=== PATIENT | male | born 2000 | race Caucasian/White ===

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

== ENCOUNTER 2022-01-06 02:53 | Emergency (ER) | payer BC ==
--- OUTSIDE RECORDS SUMMARY | 2022-01-06 02:56 | XMS REPORT | Continuity of Care Document ---
:2000 Author Organization [facility] t Address [address] [place] [address] Dr. Romero [address] [place] [id number] Care Team Providers Name Role Phone Unavailable Unavailable Unavailable Problems This patient has no known problems. Allergies, Adverse Reactions, Alerts This patient has no known allergies or adverse reactions. Medications This patient has no known medications. Procedures This patient has no known procedures. Results This patient has no known results.
[2022-01-06] MEDS ORDERED: MORPHINE 4 MG/ML SYR ONE (03:25)
[2022-01-06] MEDS ORDERED: ONDANSETRON 4 MG/2 ML VIAL ONE (03:25)
[2022-01-06] MEDS ORDERED: NA CHLORIDE 0.9% 1,000 ML ONE (03:25)
[2022-01-06 03:35] LABS: Absolute Lymphocytes (CBC) 2.1 K/uL (0.7-4.9); Hematocrit 45.5 % (39.6-49.0); Lymphocytes % 26.4 % (15.3-44.8); MCV 92.4 fL (80-100); RBC Red Blood Cell Count 4.92 M/uL (4.33-5.43)
[2022-01-06 03:47] LABS: Albumin 3.8 g/dL (3.4-5.0); Bilirubin Total 0.2 mg/dL (0.2-1.0); Potassium 3.9 mmol/L (3.5-5.1); Protein, Total 7.8 g/dL (6.4-8.2)
[2022-01-06 03:59] LABS: Urine Blood Negative (Negative); Urine Glucose Negative (Negative); Urine Protein Negative (Negative); Urine Specific Gravity 1.015 (1.005-1.030)
[2022-01-06 04:17] LABS: Urine RBC <5 /HPF (None Seen)
--- NOTE | 2022-01-06 04:51 | ER ---
Nurse's Notes [facility] Name: Leroy Lora Age: 21 yrs Sex: Male : 2000 Arrival Date: 01/06/2022 Time: 02:57 Bed 2 Private MD: Diagnosis: Right upper quadrant abdominal pain;Marijuana use Presentation: 01/06 03:04 Chief complaint: Patient states: "I have right upper abdominal pain. It's been going on as6 for 4 days and it just keeps getting worse" pt reports 1 episode of vomiting yesterday, pain worsens with movement. Coronavirus screen: At this time, the client does not indicate any symptoms associated with coronavirus-19. Ebola Screen: No symptoms or risks identified at this time. Initial Sepsis Screen: Does the patient meet any 2 criteria? No. Patient's initial sepsis screen is negative. Does the patient have a suspected source of infection? No. Patient's initial sepsis screen is negative. Risk Assessment: Do you want to hurt yourself or someone else? Patient reports no desire to harm self or others. Onset of symptoms was December 31, 2021. 03:04 Method Of Arrival: Ambulatory as6 03:04 Acuity: CATHY 3 as6 Historical: - Allergies: 03:06 No Known Drug Allergies; as6 - PMHx: 03:06 Anxiety; Bipolar disorder; as6 - PSHx: 03:06 None; as6 - Immunization history:: Client reports having NOT received the Covid vaccine. - Social history:: Smoking status: Reported history of juuling and/or vaping. Screenin:11 Abuse screen: Denies threats or abuse. Denies injuries from another. Nutritional ll3 screening: No deficits noted. Tuberculosis screening: No symptoms or risk factors identified. Fall Risk No fall in past 12 months (0 pts). No secondary diagnosis (0 pts). IV access (20 points). Ambulatory Aid- None/Bed Rest/Nurse Assist (0 pts). Gait- Normal/Bed Rest/Wheelchair (0 pts) Mental Status- Oriented to own ability (0 pts). Total Mondragon Fall Scale indicates No Risk (0-24 pts). Assessment: 03:11 General: Appears uncomfortable, Behavior is calm, cooperative. Pain: Complains of pain ll3 in right upper quadrant Pain currently is 6 out of 10 on a pain scale. Pain began 2-3 days ago. Is continuous, Aggravated by Coughing. Respiratory: Reports cough that is persistent States has a chronic cough from smoking. GI: Bowel sounds present X 4 quads. Abd is soft X 4 quads Abdomen is tender to palpation in right upper quadrant Reports nausea. Derm: Skin is pink, warm \\T\\ dry. 04:39 Reassessment: No changes from previously documented assessment. Patient and/or family kd3 updated on plan of care and expected duration. Pain level reassessed. Patient is alert, oriented x 3, equal unlabored respirations, skin warm/dry/pink. Neuro: Level of Consciousness is awake, alert, Oriented to person, place, time, situation. Respiratory: Airway is patent Trachea midline Respiratory effort is even, unlabored, Respiratory pattern is regular, symmetrical. GI: Abdomen is flat, non-distended. 05:06 Reassessment: Patient and/or family updated on plan of care and expected duration. Pain ha1 level reassessed. Patient is alert, oriented x 3, equal unlabored respirations, skin warm/dry/pink. Vital Signs: 03:04 BP 133 / 72; Pulse 86; Resp 16 S; Temp 98.3(O); Pulse Ox 98% on R/A; Weight 77.11 kg as6 (R); Height 6 ft. 0 in. (182.88 cm) (R); Pain 5/10; 04:39 BP 122 / 69; Pulse 77; Resp 16; Pulse Ox 99% on R/A; kd3 05:05 BP 108 / 58; Pulse 80; Resp 17; Pulse Ox 99% on R/A; ha1 03:04 Body Mass Index 23.06 (77.11 kg, 182.88 cm) as6 ED Course: 02:57 Patient arrived in ED. ja2 03:00 Marivel Blank MD is Attending Physician. sd2 03:06 Triage completed. as6 03:06 Arm band placed on. as6 03:11 Patient has correct armband on for positive identification. Bed in low position. Call ll3 light in reach. Side rails up X 1. Adult w/ patient. 03:21 Dinorah Laura, RN is Primary Nurse. kd3 03:21 Lipase Sent. kd3 03:21 CMP Sent. kd3 03:21 CBC with Diff Sent. kd3 03:21 Inserted saline lock: 20 gauge in right antecubital area, using aseptic technique. kd3 Blood collected. 03:35 US Abdomen Limited In Process Unspecified. EDMS 04:05 Urine Microscopic Only Sent. kd3 04:14 CT Abd/Pelvis - IV Contrast Only In Process Unspecified. EDMS 04:33 Urine Drug Screen Sent. kd3 05:06 No provider procedures requiring assistance completed. ha1 05:07 IV discontinued, intact, bleeding controlled, No redness/swelling at site. Pressure ha1 dressing applied. Administered Medications: 03:21 Drug: morphine 4 mg Route: IVP; Infused Over: 4 mins; Site: right antecubital; kd3 03:56 Follow up: Response: No adverse reaction; Pain is decreased; RASS: Alert and Calm (0) ha1 03:21 Drug: Zofran (Ondansetron) 4 mg Route: IVP; Site: right antecubital; kd3 05:08 Follow up: Response: No adverse reaction; Nausea is decreased ha1 03:21 Drug: NS 0.9% 1000 ml Route: IV; Rate: 1 bolus; Site: right antecubital; kd3 05:09 Follow up: Response: No adverse reaction; IV Status: Completed infusion; IV Intake: ha1 1000ml Medication: 04:39 VIS not applicable for this client. kd3 Intake: 05:09 IV: 1000ml; Total: 1000ml. ha1 Outcome: 04:50 Discharge ordered by . sd2 05:06 Discharged to home ambulatory, with family. ha1 05:06 Condition: stable 05:06 Discharge instructions given to patient, family, Instructed on discharge instructions, follow up and referral plans. medication usage, Demonstrated understanding of instructions, follow-up care, Prescriptions given X 2. 05:07 Patient left the ED. ha1 Signatures: Dispatcher [employer] EDMS Walker RuthApolinar Queen RN RN as6 Elvia Horne RN RN ll3 Dinorah Laura RN RN kd3 Marivel Blank MD MD sd2 Madalyn Arreola RN RN ha1 Corrections: (The following items were deleted from the chart) 05:09 05:09 IV Status: Completed infusion; IV Intake: 1000ml ha1 ha1
--- NOTE | 2022-01-06 04:51 | EDPHYS ---
Physician Documentation [facility] Name: Leroy Lora Age: 21 yrs Sex: Male : 2000 Arrival Date: 01/06/2022 Time: 02:57 Bed 2 Private MD: ED Physician Marivel Blank HPI: 01/06 03:11 This 21 yrs old Male presents to ER via Ambulatory with complaints of Fever, Abdominal sd2 Pain. 03:11 21 yo M presents with CC of RUQ abdominal pain that started a few days ago per patient. sd2 He reports pain has been localized to the same area with one episode of vomiting that occurred the night before last. Denies any associated fevers, diarrhea or urinary symptoms. No prior abdominal issues or surgeries. Has been taking Advil and Aleve at home with minimal relief.. Historical: - Allergies: 03:06 No Known Drug Allergies; as6 - PMHx: 03:06 Anxiety; Bipolar disorder; as6 - PSHx: 03:06 None; as6 - Immunization history:: Client reports having NOT received the Covid vaccine. - Social history:: Smoking status: Reported history of juuling and/or vaping. ROS: 03:11 Constitutional: Negative for fever, chills, and weight loss, Eyes: Negative for injury, sd2 pain, redness, and discharge, Cardiovascular: Negative for chest pain, palpitations, and edema, Respiratory: Negative for shortness of breath, cough, wheezing. Abdomen/GI: Positive for abdominal pain, nausea, vomiting, Negative for diarrhea. : Negative for dysuria, frequency or hematuria. MS/Extremity: Negative for injury and deformity, Skin: Negative for injury, rash, and discoloration, Neuro: Negative for headache, numbness and tingling. Exam: 03:11 Constitutional: This is a well developed, well nourished patient who is awake, alert, sd2 and in no acute distress. Head/Face: Normocephalic, atraumatic. Eyes: EOMI, normal conjunctiva bilaterally Chest/axilla: Normal chest wall appearance and motion. Nontender with no deformity. Cardiovascular: Regular rate and rhythm with a normal S1 and S2. No gallops, murmurs, or rubs. 2+ distal pulses. Respiratory: Lungs have equal breath sounds bilaterally, clear to auscultation and percussion. No rales, rhonchi or wheezes noted. No increased work of breathing, no retractions or nasal flaring. Skin: Warm, dry with normal turgor. Normal color with no rashes, no lesions, and no evidence of cellulitis. MS/ Extremity: Pulses equal, no cyanosis. Neurovascular intact. Full, normal range of motion. Ambulatory without difficulty. Psych: Awake, alert, with orientation to person, place and time. Behavior, mood, and affect are within normal limits. 03:11 Abdomen/GI: Exam negative for distension, injury, masses, splenomegaly, Palpation: soft, moderate abdominal tenderness, in the right upper quadrant, voluntary guarding, is elicited in the right upper quadrant. Vital Signs: 03:04 BP 133 / 72; Pulse 86; Resp 16 S; Temp 98.3(O); Pulse Ox 98% on R/A; Weight 77.11 kg as6 (R); Height 6 ft. 0 in. (182.88 cm) (R); Pain 5/10; 04:39 BP 122 / 69; Pulse 77; Resp 16; Pulse Ox 99% on R/A; kd3 05:05 BP 108 / 58; Pulse 80; Resp 17; Pulse Ox 99% on R/A; ha1 03:04 Body Mass Index 23.06 (77.11 kg, 182.88 cm) as6 MDM: 03:00 Patient medically screened. sd2 03:13 Differential diagnosis: Gastritis, cholecystitis, pancreatitis, SBO, diverticulitis, sd2 kidney stone, appendicitis, UTI, dehydration, electrolyte abnormality among others. Data reviewed: vital signs, nurses notes. 04:48 Data reviewed: lab test result(s), radiologic studies. Counseling: I had a detailed sd2 discussion with the patient and/or guardian regarding: the historical points, exam findings, and any diagnostic results supporting the discharge/admit diagnosis, lab results, radiology results, the need for outpatient follow up, to return to the emergency department if symptoms worsen or persist or if there are any questions or concerns that arise at home. Medical screen evaluation completed. EMTALA emergency medical condition absent. ED course: Labs and imaging reviewed. Labs grossly WNCL. Urine without infection. UDS pending but patient does admit to regular marijuana use. CTAP and US with no acute abnormalities. pt advised of all results. Pain improved after treatment. Benign abdominal exam. pt resting comfortably. Pt counseled on cessation of THC use and need for follow up outpatient regarding symptoms. Pt verbalizes understanding of discharge plan and strict return precautions. . 01/06 03:10 Order name: CBC with Diff; Complete Time: 04:13 2 01/06 03:10 Order name: CMP; Complete Time: 04:13 01/06 03:10 Order name: Lipase; Complete Time: 04:13 01/06 03:47 Order name: Urine Microscopic Only; Complete Time: 04:28 01/06 04:00 Order name: Urine Dipstick-Ancillary; Complete Time: 04:13 EDMS 01/06 04:28 Order name: Urine Drug Screen 01/06 03:10 Order name: US Abdomen Limited 01/06 03:30 Order name: CT Abd/Pelvis - IV Contrast Only 01/06 03:47 Order name: Urine Dipstick-Ancillary (obtain specimen); Complete Time: 04:05 sd2 Administered Medications: 03:21 Drug: morphine 4 mg Route: IVP; Infused Over: 4 mins; Site: right antecubital; kd3 03:56 Follow up: Response: No adverse reaction; Pain is decreased; RASS: Alert and Calm (0) ha1 03:21 Drug: Zofran (Ondansetron) 4 mg Route: IVP; Site: right antecubital; kd3 05:08 Follow up: Response: No adverse reaction; Nausea is decreased ha1 03:21 Drug: NS 0.9% 1000 ml Route: IV; Rate: 1 bolus; Site: right antecubital; kd3 05:09 Follow up: Response: No adverse reaction; IV Status: Completed infusion; IV Intake: ha1 1000ml Disposition Summary: 01/06/22 04:50 Discharge Ordered Location: Home sd2 Problem: new sd2 Symptoms: have improved sd2 Condition: Stable sd2 Diagnosis - Right upper quadrant abdominal pain sd2 - Marijuana use sd2 Followup: sd2 - With: Private Physician - When: 2 - 3 days - Reason: Recheck today's complaints, Continuance of care, Re-evaluation by your physician Discharge Instructions: - Discharge Summary Sheet sd2 - Abdominal Pain, Adult sd2 Forms: - Medication Reconciliation Form sd2 - Thank You Letter sd2 - Antibiotic Education sd2 - Prescription Opioid Use sd2 Prescriptions: - Zofran 4 mg Oral Tablet - take 1 tablet by ORAL route every 6 hours As needed; 15 tablet; Refills: 0, sd2 Product Selection Permitted - dicyclomine 20 mg Oral Tablet - take 1 tablet by ORAL route every 6-8 hours As needed for abdominal cramping; sd2 15 tablet; Refills: 0, Product Selection Permitted Signatures: Dispatcher [employer] Apolinar Ricardo RN RN as6 Dinorah Laura RN RN kd3 Marivel Blank MD MD sd2 Madalyn Arreola RN ha1
[2022-01-06 05:09] LABS: Barbiturates NEGATIVE (NEGATIVE); Benzodiazepines NEGATIVE (NEGATIVE); Cocaine NEGATIVE (NEGATIVE); METHAMPHETAM NEGATIVE (NEGATIVE); Methadone NEGATIVE (NEGATIVE); Opiates NEGATIVE (NEGATIVE); Phencyclidine NEGATIVE (NEGATIVE); THC Cannibis POSITIVE (NEGATIVE)
--- NOTE | 2022-01-06 16:28 | RAD REPORT ---
EXAM DESCRIPTION: CT - Abdomen Pelvis W Contrast - 01/06/2022 4:08 am CLINICAL HISTORY: Right sided abdominal pain COMPARISON: US right upper abdomen 01/06/2022 at 3:28 AM. TECHNIQUE: Abdomen/pelvis axial images acquired with IV contrast. Coronal and sagittal reformats cre ated. Exam performed according to departmental dose-optimization program which includes automated exp osure control, adjustment of mA and/or kV according to patient size, and/or use of iterative reconstr uction technique. FINDINGS: No free air or significant free fluid. Liver, gallbladder, spleen, pancreas, adrenals, kidneys, and urinary bladder unremarkable. Nonopacified stomach, small bowel, appendix, and large bowel appear grossly unremarkable. Portions of large bowel difficult to accurately evaluate due to lack of distention. Abdominal aorta unremarkable. Bones unremarkable. IMPRESSION: Unremarkable CT Abdomen/Pelvis With Contrast Electronically signed by: Truman Mullins MD 01/06/2022 4:29 AM CDT Due to temporary technical issues with the PACS/Fluency reporting system, reports are being signed by the in house radiologists without review as a courtesy to insure prompt reporting. The interpreting radiologist is fully responsible for the content of the report.
--- NOTE | 2022-01-06 16:35 | RAD REPORT ---
EXAM DESCRIPTION: US - Abdomen Exam Limited - 01/06/2022 3:33 am CLINICAL HISTORY: The patient is 21 years old and is Male; ABD PAIN reportedly negative sonographic Foster sign on exam TECHNIQUE: Real-time ultrasound of the right upper quadrant with image documentation. COMPARISON: No relevant prior studies available. FINDINGS: LIVER: Unremarkable as visualized. No mass. No intrahepatic bile duct dilation. GALLBLADDER: No gallbladder wall thickening. No stones. No pericholecystic free fluid. COMMON BILE DUCT: Unremarkable as visualized. No stones. No dilation. Common bile duct measures 0.3 cm in diameter. IMPRESSION: Normal exam. Electronically signed by: Manuel Payne MD 01/06/2022 3:59 AM CDT Due to temporary technical issues with the PACS/Fluency reporting system, reports are being signed by the in house radiologists without review as a courtesy to insure prompt reporting. The interpreting radiologist is fully responsible for the content of the report.
[2022-01-08 07:11] VITALS: TEMP 98.3
[2022-01-08 07:40] VITALS: BP 108/58; O2SAT 99
== END 2022-01-06 05:07 | disposition home or self-care (01) ==
LOC: ER 02:53
DX: R10.11 Right upper quadrant pain (principal); F12.90 Cannabis use, unspecified, uncomplicated
CPT/HCPCS: 85025; 36415; 83690; 80053; 80307; 74177; 76705; Q9967; J7030; J2405; 81003; 81015; 96361; 96374; 96375; 99284